=== PATIENT | male | born 1965 | race Caucasian/White ===

== ENCOUNTER 2022-02-25 17:43 | Emergency (ER) | payer OTHER, SELFPAY ==
[2022-02-25 17:54] VITALS: BP 147/105; PULSE 95; RESP 16; TEMP 36.9; O2SAT 99
--- NOTE | 2022-02-25 18:00 | DI.CT_ITS ---
Exam(s) CT ABDOMEN PELVIS W EXAM: CT ABDOMEN PELVIS W CLINICAL HISTORY: RLQ pain TECHNIQUE: Imaging Protocol: Axial computed tomography images with coronal and sagittal reformatted images were created and reviewed CONTRAST MATERIAL: Intravenous: Omnipaque 350 Contrast volume:100 mL Oral: No COMPARISON: No exams were available for comparison FINDINGS: ABDOMEN: Lung Bases: Coronary artery calcifications are present. Liver: There is decreased attenuation of the liver suggestive of fatty infiltration. The liver measu res 17.2 cm long. No measurable mass. Portal, Superior Mesenteric, and Splenic Veins: Unremarkable. Gallbladder and Biliary Tract: Status post cholecystectomy. No biliary ductal dilatation. Pancreas: Normal density, no abnormal calcifications or inflammatory process. Spleen: Normal. Adrenals: No masses seen. Kidneys: Normal size, contour and axis. There is a 3 mm stone in the proximal right ureter with mild hydronephrosis. There is a 2 mm nonobstructing stone in the lower pole of the right kidney. There i s a simple cyst in the left kidney. No solid masses are seen. The left kidney shows no evidence of nephrolithiasis or hydronephrosis. Abdominal Aorta: Abdominal portion non-dilated. Bowel: No obstruction or bowel wall thickening. There is no evidence of appendicitis. There is diver ticulosis of the colon. But no evidence of acute diverticulitis. There is a moderate amount of stoo l throughout the colon particularly in the rectum which is distended. No bowel wall thickening is se en. Peritoneal Cavity: No ascites, collection or mesenteric inflammatory response. No free air. Lymph Nodes: Within normal limits. Bones: Within normal limits for the patient's age. Soft Tissues: There are fat containing bilateral inguinal hernias. PELVIS: Bladder: Symmetric distention, no gross wall thickening. Reproductive Organs: Unremarkable as visualized. Lymph Nodes: Within normal limits. Bones: Within normal limits for the patient's age. IMPRESSION: 1. 3 mm proximal right ureteral stone with mild right hydronephrosis. 2. Moderate amount of stool throughout the colon. RADIATION DOSE DELIVERED: 1,553.72mGy.cm Total DLP DATA REPOSITORY: All CT scans at this facility are submitted to the National Radiology Data Registry (NRDR) Dose Index Registry (DIR) with the [employer] ([employer]). RADIATION OPTIMIZATION: All CT scans at this facility use at least one of these dose optimization te chniques: automated exposure control; mA and/or kV adjustment per patient size (includes targeted exa ms where dose is matched to clinical indication); or iterative reconstruction.
[2022-02-25] MEDS: Ondansetron O.D.T. 4 MG TABEF PO (18:21)
[2022-02-25] MEDS: HYDROmorphone 2 MG/ML SYR 1 MG IVP (18:21)
[2022-02-25] MEDS: Normal Saline 1,000 ML 1000 ML IV (18:22)
[2022-02-25] MEDS: Omnipaque 350 MG/ML 100 ML BTL IJ (18:55)
[2022-02-25] MEDS: Normal Saline - Diluent 50 ML VIAL IV (18:55)
[2022-02-25 19:07] LABS: Abs Immature Grans 0.06 10^3/uL (0.0-0.06); Absolute Basophil Count 0.04 10^3/uL (0.0-0.2); Absolute Monocyte Count 0.87 10^3/uL (0.1-0.8); Basophils % 0.3; Eosinophils % 0.7; HCT 38.7 % (40.0-50.0); HGB 13.3 g/dL (13.5-17.5); Immature Grans % 0.5; Lymphocytes % 16.3; MCH 30.5 pg (27.0-33.0); MCHC 34.4 % (32.0-36.0); MCV 89 fL (80-95); MPV 8.7 fL (8.0-11.0); Monocytes % 7.1; Neutrophils % 75.1; Platelet Count 307 10^3/uL (130-400); RBC 4.36 10^6/uL (4.36-5.78); RDW 12.2 % (11.8-14.1); RDW-SD 39.7 fL; WBC 12.27 10^3/uL (4.4-10.8)
[2022-02-25 19:09] LABS: Absolute Eosinophil Count 0.09 10^3/uL (0.0-0.7); Absolute Neutrophil Count 9.21 10^3/uL (1.2-6.7)
[2022-02-25 19:14] LABS: Lactate 4.6 mmol/L (0.9-1.7)
--- NOTE | 2022-02-25 19:31 | DI.VRAD_ITS ---
PROCEDURE INFORMATION: Exam: CT Abdomen And Pelvis With Contrast Exam date and time: 02/25/2022 6:45 PM Age: 57 years old Clinical indication: Abdominal pain; Flank; Right lower quadrant (rlq); Prior surgery; Surgery date: 6+ months TECHNIQUE: Imaging protocol: Computed tomography of the abdomen and pelvis with contrast. Contrast material: OMNIPAQUE 350; Contrast volume: 100 ml; Contrast route: IV; COMPARISON: No relevant prior studies available. FINDINGS: Lungs: Mild linear scar or atelectasis noted in the lung bases. Liver: Liver attenuation is low. Negative for mass or abscess. Gallbladder and bile ducts: The gallbladder is surgically absent. Negative for biliary ductal dilatation. Pancreas: Normal. No ductal dilation. Spleen: Normal. No splenomegaly. Adrenal glands: Normal. No mass. Kidneys and ureters: Mild right hydronephrosis and perinephric fat stranding. A stone in the proximal right ureter measures 3 mm. Please see axial image 55 series for. Negative for left hydronephrosis. A simple cyst in the left kidney measures 2.1 cm. Stomach and bowel: Unremarkable stomach. Nondilated small bowel. Normal terminal ileum. Moderate colonic stool. No focal inflammatory changes are observed around the colon. Mild colonic diverticulosis noted. Sigmoid colon is redundant and extends into the right mid abdomen. The rectum is distended with stool, 7.5 cm diameter. Appendix: Normal appendix. Intraperitoneal space: No free fluid. No free air. No abscess. Vasculature: Unremarkable. No abdominal aortic aneurysm. Lymph nodes: Unremarkable. No enlarged lymph nodes. Urinary bladder: Unremarkable as visualized. Reproductive: Unremarkable as visualized. Bones/joints: No compression fractures. Multilevel degenerative disc disease and facet arthropathy noted. Soft tissues: Prominent fat noted in the inguinal canals bilaterally. IMPRESSION: 1. Right proximal ureteral stone, 3 mm. 2. Mild right hydronephrosis. 3. Moderate stool at the rectum. 4. No bowel obstruction. 5. Hepatic steatosis. Dictated and Authenticated by: Josué Morelos MD. Ordering:WALESKA Hu MD
[2022-02-25 19:32] LABS: ALT 38 U/L (16-63); AST 22 U/L (15-37); Albumin 3.8 g/dL (3.4-5.0); Alkaline Phosphatase 90 U/L (46-116); Anion Gap 10.8 mmol/L (3-11); BUN 14 mg/dL (7-18); Bilirubin, Total 0.6 mg/dL (0.2-1.0); CO2 25.2 mmol/L (21.0-32.0); CREATININE 1.2 mg/dL (0.70-1.30); Chloride 100 mmol/L (98-107); Estimated GFR 71.42 (mL/min/1.73m2); Glucose 216 mg/dL (74-106); Magnesium 1.8 mg/dL (1.8-2.4); Potassium 3.6 mmol/L (3.5-5.1); Sodium 136 mmol/L (136-145); Total Protein 6.8 g/dL (6.4-8.2)
--- NOTE | 2022-02-25 19:45 | W.ED.GENAD ---
Discharge Plan Disposition Patient Disposition: Home Condition: Stable Discharge Details Clinical Impression: Kidney stone Primary Care Provider: Casey David ED Provider: Fritz Armas Home Meds and New Rx's Prescriptions: New tamsulosin 0.4 mg capsule 0.4 mg PO QHS 14 Days Qty: 14 0RF Continued Ozempic 2 mg/dose (8 mg/3 mL) pen injector 8 device SUBCUT DAILY albuterol sulfate 90 mcg/actuation HFA aerosol inhaler 90 inh INHALATION PRN PRN Label Comments: Inhale 2 puff using inhaler every four hours as needed INHALE 1 TO 2 PUFFS BY MOUTH UP TO FOUR TIMES A DAY NEEDED FOR SHORTNESS OF BREATH, WHEEZING OR COUGH. USE WITH SPACER. (RESCUE INHALER) atorvastatin 10 mg tablet 10 tab PO DAILY Label Comments: TAKE ONE TABLET BY MOUTH EVERY DAY lisinopril 20 mg tablet 20 tab PO DAILY Label Comments: TAKE ONE TABLET BY MOUTH EVERY DAY FOR BLOOD PRESSURE gabapentin 100 mg capsule 100 cap PO DAILY Label Comments: TAKE TWO CAPSULES BY MOUTH AT BEDTIME DUE FOR WELL VISIT metformin 500 mg tablet extended release 24 hr 2,000 tab PO DAILY Label Comments: TAKE 4 TABLETS ORALLY EVERY MORNING Discharge Instructions Instructions: Kidney Stones (ED) Additional Instructions: He has been given a limited amount of narcotics in the emergency department. Please take for severe pain only and use sparingly. You may continue to take [id number] acetaminophen as needed for further discomfort. Please follow-up with urology for reassessment and further treatment as needed. If you develop any fever, inability to urinate, or severe worsening of symptoms feel free to return to the Emergency Department for reassessment as well. Referrals: [facility] [Provider Group] (Please call the office tomorrow afternoon for arrangement of follow-up appointment) Discharge Data Discharge Date/Time-TO BE ENTERED AT DEPARTURE: 02/25/22 20:50 Medical Decision Making Patient presenting to the emergency department via EMS for chief complaint of abdominal pain. Patient states approximately 2 hours prior to arrival patient started having severe abdominal pain and discomfort. Does state history of cholecystectomy and kidney stones but states significant right lower quadrant discomfort. Patient acutely ill-appearing with tenderness to right mid and lower abdomen. And mild right CVA tenderness. Patient denies any chest pain shortness of breath. Reviewed patient's labs and CBC slightly elevated with WBCs of 12.27, mild anemia at 13.2, neutrophils 9.21 and monocytes 0.87. Patient does have elevated lactate at 4.6 so we will continue fluid hydration. Glucose of 216 otherwise CMP is unremarkable. Review of CT imaging shows a 3 mm stone with mild hydronephrosis. No other acute findings are noted on CT imaging. Patient reassessed and does state some improvement of symptoms. Given patient having some continued pain will give IV Tylenol and give limited prescription for narcotics for home use for severe pain. Patient was started on Flomax and placed upon follow-up list for urology. Urinalysis also shows no signs of infection. After discussion of diagnosis and plan of care patient has no further needs, questions, or concerns and states clear understanding to return to the emergency department for any worsening symptoms. This documentation was generated using [employer] system, please disregard any oddities of phrase or misspellings. Sign Out No HPI General Mode of arrival: EMS. Date/Time Provider Initiated Documentation: 02/25/22 18:10. Limitations to Documentation: no limitations. Information obtained by: patient and RN notes reviewed. History of Present Illness 57 year old M presents to the emergency department with the chief complaint of abd pain , with intensity rated at 10. Quality is described as sharp, and is localized to the abdomen. Patient reports no radiation. Patient started experiencing this hour(s) (2) and it has been constant. No relieving factors improve symptom(s), No exacerbating factors reported . Patient notes no other symptoms.. Patient did receive the following treatments prior to arrival, other (Fentanyl, ketamine per EMS) Related Data Home Medications Medication Instructions Recorded Confirmed albuterol sulfate 90 mcg/actuation 90 inh inhalation PRN PRN 02/25/22 02/25/22 aerosol inhaler atorvastatin 10 mg tablet 10 tab PO DAILY 02/25/22 02/25/22 gabapentin 100 mg capsule 100 cap PO DAILY 02/25/22 02/25/22 lisinopril 20 mg tablet 20 tab PO DAILY 02/25/22 02/25/22 metformin 500 mg tablet,extended 2,000 tab PO DAILY 02/25/22 02/25/22 release 24 hr semaglutide 2 mg/dose (8 mg/3 mL) 8 device subcut DAILY 02/25/22 02/25/22 subcutaneous pen injector (Ozempic) tamsulosin 0.4 mg capsule 0.4 mg PO QHS 14 days #14 caps 02/25/22 Previous Rx's Medication Instructions Recorded tamsulosin 0.4 mg capsule 0.4 mg PO QHS 14 days #14 caps 02/25/22 Allergies Allergy/AdvReac Type Severity Reaction Status Date / Time aspirin Allergy Unverified 02/25/22 18:11 ibuprofen Allergy Unverified 02/25/22 18:10 General Stated Complaint: Abd Prob MENA: 3 Review of Systems Constitutional Constitutional: Denies chills, Denies fever(s) and Reports poor appetite Cardiovascular Cardiovascular: Denies chest pain and Denies dyspnea Respiratory Respiratory: Denies cough and Denies dyspnea Gastrointestinal Gastrointestinal: Reports as per HPI, Reports abdominal pain, Denies melena, Denies change in bowel habits, Denies constipation, Denies diarrhea, Reports nausea and Reports vomiting Genitourinary Genitourinary: Denies hematuria, Denies difficulty urinating, Denies urinary hesitancy, Denies urinary incontinence and Denies urinary urgency Integumentary/Breasts Skin/Breast: Denies rash PFSH All Active Problems (Updated 02/25/22 @ 20:18 by Fritz Armas NP) Kidney stone (Chronic) Diabetes (Chronic) Medical History (Updated 02/25/22 @ 20:18 by Fritz Armas NP) Kidney stones Surgical History (Updated 02/25/22 @ 19:47 by Fritz Armas NP) History of cholecystectomy Social History Smoking/Tobacco Use Status: Never Smoking risk assessment performed?: Yes Alcohol Intake: never Drug use: Never Substance use type: does not use Do you feel safe at home: Yes Do you feel safe in your relationship?: Yes Exam Const General: cooperative and ill appearing acutely Orientation: alert, awake and oriented x3 Resp Effort & Inspection: normal respiratory effort and able to speak in complete sentences Auscultation: clear to auscultation bilaterally Cardio Rate: regular rate Rhythm: regular rhythm Heart Sounds: S1 normal and S2 normal GI Palpation: soft, not firm, no guarding, no masses, no pulsatile masses, not rigid, no splenomegaly and tender in the RLQ Auscultation: normal bowel sounds General: CVA tenderness on the right (mild) Back/Spine/Pelvis Back: CVA tenderness Neuro General: patient alert, patient awake, patient oriented x3, gait normal and moves all extremities Course Vital Signs Vital signs: Vital Signs Temperature 36.9 C 02/25/22 17:54 Pulse 95 H 02/25/22 17:54 Respiratory Rate 16 02/25/22 17:54 Blood Pressure 147/105 H 02/25/22 17:54 Pulse Oximetry 99 02/25/22 17:54 Temperature 36.9 C 02/25/22 17:54 Temperature Source Tympanic 02/25/22 17:54 Pulse 95 H 02/25/22 17:54 Respiratory Rate 16 02/25/22 17:54 Respiratory Effort Non-Labored 02/25/22 18:15 Blood Pressure 147/105 H 02/25/22 17:54 Blood Pressure Position Supine 02/25/22 17:54 Pulse Oximetry 99 02/25/22 17:54 Oxygen Delivery Method Room Air 02/25/22 17:54 Oxygen Flow Rate 0 02/25/22 17:54 Pain Level 10 02/25/22 18:14 Lab/Test Results Lab/Test Results: Laboratory Tests Range/Units 02/25/22 02/25/22 02/25/22 19:00 19:00 19:00 WBC (4.4-10.8) 10^3/uL 12.27 H RBC (4.36-5.78) 10^6/uL 4.36 Hgb (13.5-17.5) g/dL 13.3 L Hct (40.0-50.0) % 38.7 L MCV (80-95) fL 89 MCH (27.0-33.0) pg 30.5 MCHC (32.0-36.0) % 34.4 RDW (11.8-14.1) % 12.2 Plt Count (130-400) 10^3/uL 307 MPV (8.0-11.0) fL 8.7 Immature Gran % 0.5 Neutrophils % 75.1 Lymphocytes % 16.3 Monocytes % 7.1 Eosinophils % 0.7 Basophils % 0.3 Nucleated RBC % (0.0-0.3) % 0.0 Absolute Neutrophils (1.2-6.7) 10^3/uL 9.21 H Absolute Lymphocytes (1.2-3.4) 10^3/uL 2.00 Absolute Monocytes (0.1-0.8) 10^3/uL 0.87 H Absolute Eosinophils (0.0-0.7) 10^3/uL 0.09 Absolute Basophils (0.0-0.2) 10^3/uL 0.04 VBG Lactate (0.9-1.7) mmol/L 4.6 H* Sodium (136-145) mmol/L 136 Potassium (3.5-5.1) mmol/L 3.6 Chloride (98-107) mmol/L 100 Carbon Dioxide (21.0-32.0) mmol/L 25.2 Anion Gap (3-11) mmol/L 10.8 BUN (7-18) mg/dL 14 Creatinine (0.70-1.30) mg/dL 1.2 Est GFR (CKD-EPI 2020) (mL/min/1.73m2) 71.42 Glucose (74-106) mg/dL 216 H Calcium (8.5-10.1) mg/dL 9.0 Magnesium (1.8-2.4) mg/dL 1.8 Total Bilirubin (0.2-1.0) mg/dL 0.6 AST (15-37) U/L 22 ALT (16-63) U/L 38 Alkaline Phosphatase (46-116) U/L 90 Total Protein (6.4-8.2) g/dL 6.8 Albumin (3.4-5.0) g/dL 3.8
--- NOTE | 2022-02-25 20:19 | NUR.NOTE ---
Referral faxed to [facility] to f/u for 3mm kidney stone.Nursing Note:
[2022-02-25] MEDS: ACETAMINOPHEN 1,000 MG/100 ML BTL 400 MG IVPB (20:24)
[2022-02-25] MEDS: Tamsulosin 0.4 MG CAPCR PO (20:24)
[2022-02-25 20:38] LABS: Bilirubin Negative (Negative); Blood Large (Negative); Clarity Sl Cloudy (Clear); Glucose Negative (Negative); Ketones 40 mg/dL (Negative); Leukocyte Esterase Negative (Negative); Nitrite Negative (Negative); Specific Gravity 1.015 (1.005-1.025); Urobilinogen 0.2 EU/dL (Up TO 0.2); pH 6.5 (5-8)
[2022-02-25 20:40] VITALS: BP 140/100; PULSE 90; RESP 14; O2SAT 99
[2022-02-25 20:45] LABS: Bacteria Rare HPF (Negative); Crystals Negative HPF (Negative); Epithelial Cells Rare HPF (Negative); Mucus Trace (Negative); RBC >50 HPF (0-2); WBC 0-2 HPF (0-5)
[2022-02-25 20:46] LABS: C & S Indicated? No
== END 2022-02-25 20:50 | disposition home or self-care (01) ==
LOC: ER 20:53
PROVIDERS: Emergency Provider Nurse Practitioner Family; PCP Family Medicine
DX: N13.2 Hydronephrosis with renal and ureteral calculous obstruction (principal); D72.829 Elevated white blood cell count, unspecified; D64.9 Anemia, unspecified; R74.02 Elevation of levels of lactic acid dehydrogenase [LDH]
CPT/HCPCS: 36415; 80053; 96361; 96374; 96375; 99285; 74177; 81003; 81015; 83605; 83735; 85025; 99284; J0131; J1170; J3490